=== PATIENT | male | born 1995 | race Caucasian/White ===

== ENCOUNTER 2019-03-03 17:10 | Emergency (ER) | payer OTHER ==
[~2019-03-03] VITALS: Ht 170.2 cm; Wt 81.7 kg
[2019-03-03] MEDS ORDERED: KEFLEX500 MG PO (19:09)
== END 2019-03-03 19:24 | disposition home or self-care (01) ==
LOC: ED 17:10
DX: S61.211A Laceration without foreign body of left index finger without damage to nail, initial encounter (principal); W26.0XXA Contact with knife, initial encounter; F17.200 Nicotine dependence, unspecified, uncomplicated
CPT/HCPCS: 12001; 73140; 90471; 90715; 99283-25; A9270

== ENCOUNTER 2019-10-05 18:48 | Emergency (ER) | payer BC ==
[~2019-10-05] VITALS: Ht 167.6 cm; Wt 86.2 kg
[~2019-10-05 18:48] MED LIST: KEFLEX500 MG PO
== END 2019-10-05 22:00 | disposition home or self-care (01) ==
LOC: ED 18:48
DX: S60.221A Contusion of right hand, initial encounter (principal); F17.200 Nicotine dependence, unspecified, uncomplicated; W23.0XXA Caught, crushed, jammed, or pinched between moving objects, initial encounter
CPT/HCPCS: 73130; 99283-25

== ENCOUNTER 2024-03-31 12:38 | Emergency (ER) | payer OTHER ==
[~2024-03-31] VITALS: Ht 167.6 cm; Wt 95.3 kg
[2024-03-31] MEDS ORDERED: SERTRALINE HCL25 MG PO (13:26)
[2024-03-31] MEDS ORDERED: DIPHTH,PERTUSS(ACELL),TET VAC 0.5 ML SYRINGE IM ONE (14:00)
[2024-03-31] MEDS ORDERED: OXYCODONE/APAP 5/325 TAB PO ONE (14:00)
[2024-03-31] MEDS ORDERED: PERCOCET 5-3251 EACH PO (14:52)
[2024-03-31 14:55] VITALS: BP 139/100
== END 2024-03-31 14:55 | disposition home or self-care (01) ==
LOC: ED 12:38
DX: T22.111A Burn of first degree of right forearm, initial encounter (principal); T21.11XA Burn of first degree of chest wall, initial encounter; T21.12XA Burn of first degree of abdominal wall, initial encounter; X08.8XXA Exposure to other specified smoke, fire and flames, initial encounter; Z23 Encounter for immunization; F17.200 Nicotine dependence, unspecified, uncomplicated; Z79.899 Other long term (current) drug therapy
CPT/HCPCS: 90471; 90715; 99283-25

== ENCOUNTER 2024-07-08 14:41 | Emergency (ER) | payer OTHER ==
[~2024-07-08] VITALS: Ht 167.6 cm; Wt 91.0 kg
[~2024-07-08 14:41] MED LIST changes: +PERCOCET 5-3251 EACH PO; +SERTRALINE HCL25 MG PO
[2024-07-08 21:37] VITALS: BP 136/87
== END 2024-07-08 21:37 | disposition home or self-care (01) ==
LOC: ED 14:41
DX: S60.221A Contusion of right hand, initial encounter (principal); W22.8XXA Striking against or struck by other objects, initial encounter; F17.200 Nicotine dependence, unspecified, uncomplicated; Z79.899 Other long term (current) drug therapy
CPT/HCPCS: 73130; 99283

== ENCOUNTER 2024-10-20 15:13 | Emergency (ER) | payer OTHER ==
[~2024-10-20] VITALS: Ht 167.6 cm; Wt 92.0 kg
[2024-10-20 17:01] LABS: BASOPHILS 1.1 % (0.2-1.2); EOSINOPHILS 0.7 % (0.8-7.0); LYMPHOCYTES 29.0 % (21.8-53.1); MCH 30.8 PG (25.7-32.2); MCHC 35.3 g/dL (32.3-36.5); MCV 87.2 fL (79.0-92.2); MONOCYTES 7.1 % (5.3-12.2); NEUTROPHILS 61.8 % (34.0-67.9); RBC 5.39 M/uL (4.63-6.08)
[2024-10-20 17:22] LABS: ALT (SGPT) 31.0 U/L (14-59); AST (SGOT) 20.0 U/L (15-37); GLOMERULAR FILTRATION RATE,EST 112.0 mL/min (>60); PROTEIN, TOTAL 7.4 g/dL (6.4-8.2); UREA NITROGEN 15.0 mg/dL (7-18)
[2024-10-20 19:47] VITALS: BP 138/87
== END 2024-10-20 19:47 | disposition home or self-care (01) ==
LOC: ED 15:13
PROVIDERS: Emergency Medicine
DX: R10.9 Unspecified abdominal pain (principal); F17.200 Nicotine dependence, unspecified, uncomplicated
CPT/HCPCS: 36415; 71045; 80053; 85025; 99285-25